=== PATIENT | female | born 1985 | race African-American/Black ===

== ENCOUNTER 2022-01-15 08:49 | Emergency (ER) | payer MEDICAID ==
[~2022-01-15] VITALS: Ht 162.6 cm; Wt 88.2 kg
[2022-01-15 09:11] VITALS: BP 131/75
--- NOTE | 2022-01-15 09:17 | NUR ---
PT AMBULATED TO ER BED 6
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
--- NOTE | 2022-01-15 10:06 | NUR ---
ER AT BEDSIDE
[2022-01-15] MEDS ORDERED: KETOROLAC 30 MG/ML VIAL IVP ONE (10:10)
[2022-01-15] MEDS ORDERED: ONDANSETRON 4 MG/2 ML VIAL IVP ONE (10:10)
--- NOTE | 2022-01-15 10:46 | NUR ---
20G IV CATH PLACED IN L AC PT LEFT FOR CT
--- NOTE | 2022-01-15 10:51 | NUR ---
PT BACK FROM CT
[2022-01-15] MEDS: NACL 0.9% 1,000 ML IV SCH ×2 (11:01→13:43)
[2022-01-15 11:35] LABS: BASOPHILS # (AUTO) 0.1 K/uL (0.00-0.22); BASOPHILS % (AUTO) 0.6 % (0.0-2.0); EOSINOPHILS # (AUTO) 0.1 K/uL (0-0.4); EOSINOPHILS % (AUTO) 0.7 % (0.0-4.0); HEMATOCRIT 33.8 % (36-48); HEMOGLOBIN 10.5 g/dL (12.0-16.0); LYMPHOCYTES % (AUTO) 27.2 % (20.5-51.1); MEAN CORPUSCULAR HEMOGLOBIN 22 pg (27-31); MEAN CORPUSCULAR HGB CONC 31 g/dL (33-37); MEAN CORPUSCULAR VOLUME 71.1 fL (80-94); MONOCYTES # (AUTO) 0.7 K/uL (0.8-1.0); NEUTROPHILS # (AUTO) 7.3 K/uL (1.8-7.7); NEUTROPHILS % (AUTO) 65.5 % (42.2-75.2); PLATELET COUNT (AUTO) 344 K/uL (140-450); RED BLOOD CELL COUNT(AUTO) 4.75 MIL/uL (4.20-5.40); RED CELL DISTRIBUTION WIDTH 17.5 % (11.6-13.7); WHITE BLOOD COUNT (AUTO) 11.1 K/uL (4.8-10.8)
[2022-01-15 12:01] LABS: ALBUMIN 3.4 g/dL (3.4-5.0); CARBON DIOXIDE 28.4 mmol/L (21-32); CREATININE 1.1 mg/dL (0.6-1.3); POTASSIUM 4.4 mmol/L (3.5-5.1); TOTAL BILIRUBIN 0.5 mg/dL (0.0-1.0)
--- NOTE | 2022-01-15 12:39 | NUR ---
URINE WALKED TO LAB HANDED TO ELIZA
[2022-01-15 12:46] LABS: APPEARANCE,URINE CLOUDY (CLEAR); BILIRUBIN,URINE NEGATIVE (NEGATIVE); BLOOD, URINE 1+ (NEGATIVE); COLOR,URINE YELLOW (YELLOW); LEUKOCYTE ESTERASE ,URINE NEGATIVE (NEGATIVE); NITRITE, URINE POSITIVE (NEGATIVE); UGLUCOSE NEGATIVE (NEGATIVE)
[2022-01-15] MEDS ORDERED: NITR100C7 PO (12:55)
[2022-01-15] MEDS ORDERED: NAPR-1704 PO (12:55)
[2022-01-15 12:59] LABS: CALCIUM OXALATE CRYSTALS,UR None Seen /HPF (None Seen); COARSE GRANULAR CASTS,URINE None Seen /LPF (None Seen); FINE GRANULAR CASTS,URINE None Seen /LPF (None Seen); HYALINE CASTS, URINE None Seen /LPF (None Seen); OTHER CASTS, URINE None Seen /LPF (None Seen); OTHER CRYSTALS,URINE None Seen /HPF (None Seen); RED BLOOD CELL CASTS,URINE None Seen /LPF (None Seen); TRICHOMONAS,URINE None Seen /HPF (None Seen); TRIPLE PHOSPHATE CRYSTAL,UR None Seen /HPF (None Seen); URIC ACID CRYSTALS,URINE None Seen /HPF (None Seen); URINE AMORPHOUS URATE 1+ /HPF (None Seen); WAXY CASTS,URINE None Seen /LPF (None Seen); YEAST,URINE None Seen /HPF (None Seen)
[2022-01-15 13:12] VITALS: BP 132/74
--- NOTE | 2022-01-15 13:12 | NUR ---
Patient discharged with v/s stable. Written and verbal after care instructions given and explained. Patient alert, oriented and verbalized understanding of instructions. Ambulatory with steady gait. All questions addressed prior to discharge. ID band removed. Patient advised to follow up with PMD. Rx of NAPROXEN MACROBID given. Patient educated on indication of medication including possible reaction and side effects. Opportunity to ask questions provided and answered.
--- NOTE | 2022-01-15 13:13 | NUR ---
The patient's care was reviewed and supervised by Nikia Ospina RN.
== END 2022-01-15 13:12 | disposition home or self-care (01) ==
LOC: MED 08:49
DX: I88.0 Nonspecific mesenteric lymphadenitis (principal); M54.50 Low back pain, unspecified; Z90.49 Acquired absence of other specified parts of digestive tract; Z98.890 Other specified postprocedural states
CPT/HCPCS: 36415; 74176; 80053; 81001; 81025; 83690; 85025; 87086; 96361; 96374; 96375; 99284; J1885; J2405; J7030; 99283